=== PATIENT | female | born 1995 | race Caucasian/White ===

== ENCOUNTER → 2018-05-20 14:52 | Outpatient (CLI) | payer OTHER, MEDICAID, SELFPAY | PROVIDERS: PCP Internal Medicine; Visit Provider Internal Medicine | DX: R19.7 Diarrhea, unspecified (principal) ==

== ENCOUNTER → 2018-05-20 15:27 | Outpatient (CLI) | payer OTHER, MEDICAID, SELFPAY ==
[2018-05-20 17:10] LABS: Add Manual Diff / Slide Review NO; Basophils Percent Auto 0.7 % (0-2); Eosinophils Percent Auto 3.3 % (2-4); Hematocrit 38.8 % (36-46); Hemoglobin 13.5 g/dL (12.0-16.0); Lymphocytes Percent Auto 30.7 % (25-40); Mean Corpuscular HGB Conc 34.8 % (30-36); Mean Corpuscular Hemoglobin 29.1 PG (26-34); Mean Corpuscular Volume 83.6 fL (80-100); Monocytes Percent Auto 7.7 % (3-14); Neutrophils Absolute Auto 5000 /uL (3000-5900); Neutrophils Percent Auto 57.6 % (50-75); Platelet Count 300 X10^3/uL (150-400); Red Blood Cell Count 4.64 X10^6/uL (4.0-5.2); Red Cell Distribution Width 12.6 % (11.6-14.8); White Blood Cell Count 8.7 X10^3/uL (4.5-11.0)
[2018-05-20 18:08] LABS: Alanine Aminotransferase 37 IU/L (9-52); Albumin 4.5 g/dL (3.5-5.0); Albumin Globulin Ratio 1.7 (1.0-2.8); Alkaline Phosphatase 61 U/L (38-126); Amylase 53 U/L (30-110); Aspartate Aminotransferase 28 IU/L (14-36); Bilirubin Total 1.1 mg/dL (0.2-1.3); Blood Urea Nitrogen 12 mg/dL (7-17); Carbon Dioxide 27 mmol/L (22-32); Chloride 105 mmol/L (98-107); Cholesterol 162 mg/dL (140-199); Estimated Glomerular Filt Rate > 60.0 mL/min (>60); Globulin 2.6 g/dL (1.7-4.1); Glucose 90 mg/dL (70-100); HDL Cholesterol 46 mg/dL (40-60); HEMOLYSIS < 15 (0-50); LDL Cholesterol Calculated 102 mg/dL (<100); Lipase 77 U/L (23-300); Potassium 5.1 mmol/L (3.4-5.1); Sodium 144 mmol/L (137-145); Total Protein 7.1 g/dL (6.3-8.2); Triglycerides 72 mg/dL (35-150)
[2018-05-20 18:35] LABS: Thyroid Stimulating Hormone 0.84 uIU/mL (0.47-4.68)
== END ==
PROVIDERS: PCP Internal Medicine; Visit Provider Internal Medicine
DX: R11.2 Nausea with vomiting, unspecified (principal); R11.0 Nausea; R11.10 Vomiting, unspecified
CPT/HCPCS: 36415; 80053; 80061; 82150; 83690; 84443; 85025

== ENCOUNTER → 2018-05-21 10:49 | Outpatient (CLI) | payer OTHER, MEDICAID, SELFPAY | PROVIDERS: PCP Internal Medicine; Visit Provider Internal Medicine | DX: R11.2 Nausea with vomiting, unspecified (principal); R19.7 Diarrhea, unspecified ==

== ENCOUNTER → 2018-05-23 13:15 | Outpatient (CLI) | payer OTHER, MEDICAID, SELFPAY | PROVIDERS: PCP Internal Medicine; Visit Provider Internal Medicine | DX: R19.7 Diarrhea, unspecified (principal); R11.0 Nausea; R11.10 Vomiting, unspecified | CPT/HCPCS: 86677; 87015; 87045; 87046; 87427; 87899 ==

== ENCOUNTER 2019-06-27 21:21 | Emergency (ER) | payer OTHER, MEDICAID, SELFPAY ==
[2019-06-27 21:59] VITALS: BP 135/89; PULSE 112; RESP 18; TEMP 36.7; O2SAT 97; BMI 41.6
--- NOTE | 2019-06-27 22:02 | DI.RAD.S_ITS ---
PROCEDURE: XR CHEST 2V INDICATIONS: upper repiratory infection TECHNIQUE: 2 views of the chest were acquired. COMPARISON: [facility], , CHEST 2 VIEW, 08/18/2014, 21:53. FINDINGS: Surgical changes and devices: None. Lungs and pleura: Lungs are clear. No pleural effusions or pneumothorax. Mediastinum: Mediastinal contours are normal. Heart size is normal. Bones and chest wall: No suspicious bony abnormalities. Soft tissues appear unremarkable. IMPRESSION: Chest without acute cardiopulmonary abnormalities. No focal consolidation. Dictated by: Cipriano Lay M.D. on 06/28/2019 at 6:27 Approved by: Cipriano Lay M.D. on 06/28/2019 at 6:28
[2019-06-27] MEDS: ALBUTEROL/IPRATROPIUM 3 ML AMPUL INH (22:20)
[2019-06-27 22:21] VITALS: PULSE 115; RESP 24; O2SAT 99
--- NOTE | 2019-06-27 22:53 | ED.URI ---
HPI - URI/Sore Throat General Chief Complaint: Upper Respiratory Symptoms Stated Complaint: HEAD COLD HARD TIME BREATHING Time Seen by Provider: 06/27/19 22:05 Source: patient Mode of arrival: ambulatory Limitations: no limitations History of Present Illness HPI Narrative: 23-year-old female here for evaluation of sinus congestion that she has had for the past several days. She now feels like it is moved to her chest. She does have an inhaler at home which she does not feel is improving much for symptoms. Has had some coughing. Has tried some [id number]-yuy-vupxkva cough and cold preparations without much improvement. She is not on any decongestants. No fevers. No underlying lung pathology. Related Data Home Medications Medication Instructions Recorded Confirmed trazodone 100 mg tablet 50 mg PO DAILY 08/12/18 05/14/19 bupropion HCl 150 mg 24 hr tablet, 150 mg PO QAM 05/12/19 05/14/19 extended release citalopram 40 mg tablet 40 mg PO DAILY 05/12/19 05/14/19 Previous Rx's Medication Instructions Recorded albuterol sulfate 90 mcg/actuation 2 puff INHALATION Q4-6H PRN #8.5 08/02/18 aerosol inhaler gram desogestrel 0.15 mg-ethinyl 1 tab PO DAILY #84 tab 08/27/18 estradiol 0.03 mg tablet naproxen 500 mg tablet 500 mg PO BID PRN #30 tab 05/14/19 prednisone 40 mg PO DAILY 3 Days #6 tab 06/27/19 Allergies Allergy/AdvReac Type Severity Reaction Status Date / Time diphenhydramine Allergy Verified 06/27/19 21:58 Review of Systems Constitutional Constitutional: Denies fever(s) ENT Ears, Nose, Mouth, and Throat: Denies vertigo Cardiovascular Cardiovascular: Denies chest pain and Reports dyspnea Respiratory Respiratory: Reports chest congestion, Reports cough and Reports dyspnea Gastrointestinal Gastrointestinal: Denies abdominal pain, Denies diarrhea and Denies vomiting Genitourinary Genitourinary: Denies dysuria Musculoskeletal Musculoskeletal: Denies myalgias and Denies arthralgias Integumentary/Breasts Skin/Breast: Denies lesions and Denies rash Neurologic Neurologic: Denies vertigo Hematologic/Lymphatic Hematologic/Lymphatic: Denies easy bleeding and Denies easy bruising [facility] Medical History Anxiety (Inactive 08/28/16) Depression (Inactive 08/28/16) Social History Smoking Status: Current some day smoker Social History Smoking Status: Current some day smoker Exam Initial Vital Signs Initial Vital Signs: Vital Signs Temperature 98.0 F 06/27/19 21:59 Pulse Rate 112 H 06/27/19 21:59 Respiratory Rate 18 06/27/19 21:59 Blood Pressure 135/89 06/27/19 21:59 Pulse Oximetry 97 06/27/19 21:59 Const General: cooperative, comfortable and well developed Orientation: alert, awake and oriented x3 HENMT Head: normal to inspection and normocephalic Ears: TM abnormal bulging Nose: external nose normal Throat: posterior oropharynx normal Resp Effort & Inspection: normal respiratory effort, not labored and not tachypneic Auscultation: wheezes Cardio Rate: tachycardic Rhythm: regular rhythm Skin Lesions: no lesions Rashes: no rashes Neuro General: alert and awake Extrem General: normal to inspection, capillary refill normal and No edema Course Orders Ordered: ED Orders 06/27/19 22:02 XR chest 2V Stat 06/27/19 22:52 RT Consult Eval and Treat Now Discontinued Medications Albuterol (Ventolin Hfa Prepack) 1 box MISC SEEINSTR ONE Stop: 06/27/19 22:53 Last Admin: 06/27/19 23:03 Dose: 1 box Documented by: HUA Albuterol/Ipratropium (Duoneb) 3 ml INH NOW ONE Stop: 06/27/19 22:06 Last Admin: 06/27/19 22:20 Dose: 3 ml Documented by: ELODIA Vital Signs Vital signs: Vital Signs - 8 hr 06/27/19 21:59 06/27/19 22:21 06/27/19 23:03 Temperature 98.0 F 99.6 F Pulse Rate 112 H 115 H 120 H Respiratory Rate 18 24 20 Blood Pressure 135/89 130/72 Pulse Oximetry 97 99 95 MDM - URI/Sore Throat Imaging Data Chest x-ray: Attestation: I personally reviewed and interpreted this imaging study as follows: My impression: No pneumonia, no pneumothorax, normal size heart MDM Narrative Medical decision making narrative: Patient is nontoxic appearing. She states she reported an improvement of her symptoms after the albuterol neb. She is still wheezing. Rest of her exam is unremarkable. Chest x-ray shows no signs of pneumonia. Will send home with an albuterol inhaler and AeroChamber. No indication for antibiotics. I do suspect an upper respiratory infection. She expressed understanding and agreement plan. Discharge Plan Departure Patient Disposition: Home Clinical Impression: Acute upper respiratory infection Discharge Date/Time: 06/27/19 23:08 Instructions: DI for Viral Upper Respiratory Infection -- Adult Activity Restrictions/Additional Instructions: Recommend you take all the medications as directed. Be sure to increase your fluid intake. Return to the emergency department for any new or worsening symptoms. Also recommend you to start taking a decongestant such as Claritin or Sandra or Zyrtec. You can also take nasal spray such as Nasonex or Flonase. Prescriptions: New prednisone 20 mg tablet 40 mg PO DAILY 3 Days Qty: 6 RF: 0 No Action citalopram 40 mg tablet 40 mg PO DAILY RF: 0 bupropion HCl 150 mg tablet extended release 24 hr 150 mg PO QAM RF: 0 albuterol sulfate 90 mcg/actuation HFA aerosol inhaler 2 puff INHALATION Q4-6H PRN (Reason: shortness of breath) Qty: 8.5 RF: 1 trazodone 100 mg tablet 50 mg PO DAILY RF: 0 desogestrel-ethinyl estradiol [Apri] 0.15-0.03 mg tablet 1 tab PO DAILY Qty: 84 RF: 4 naproxen 500 mg tablet 500 mg PO BID PRN (Reason: pain) Qty: 30 RF: 0 Referrals: Lauren Mejia ARNP [Primary Care Provider] -
[2019-06-27 23:03] VITALS: BP 130/72; PULSE 120; RESP 20; TEMP 37.6; O2SAT 95
[2019-06-27] MEDS: ALBUTEROL HFA PREPACK 1 BOX MISC (23:03)
== END 2019-06-27 23:08 | disposition home or self-care (01) ==
PROVIDERS: Emergency Provider Emergency Medicine; PCP Internal Medicine
DX: J06.9 Acute upper respiratory infection, unspecified (principal)
CPT/HCPCS: 71046; 94640; 99282; 99283